=== PATIENT | female | born 1940 | race Native Hawaiian/Other Pacific Islander ===

== ENCOUNTER 2021-12-08 09:46 | Inpatient (IN) ==
[2021-12-08 13:42] LABS: Basophils # 0.1 K/mcL (0.0-0.2); Eosinophils # 0.3 K/mcL (0.0-0.6); Eosinophils % 4.2 %; Hematocrit 44.4 % (35.3-44.9); Hemoglobin 14.3 g/dL (11.5-15.4); Immature Granulocytes % 0.4 % (0-4); Lymphocytes # 1.6 K/mcL (0.6-4.6); Lymphocytes % 23.9 %; Mean Corpuscular HGB Conc 32.2 g/dL (31.6-35.5); Mean Corpuscular Hemoglobin 30.2 pg (28.0-33.3); Mean Corpuscular Volume 93.9 fL (83.0-100.0); Mean Platelet Volume 10.2 fL (9.4-12.4); Monocytes # 0.4 K/mcL (0.0-1.3); Monocytes % 6.6 %; Neutrophils # 4.3 K/mcL (1.6-8.9); Platelet Count 236 K/mcL (140-400); Red Blood Count 4.73 M/mcL (3.82-4.97); Red Cell Distribution Width 15.1 % (11.5-14.5); Segmented Neutrophils % 63.9 %; White Blood Count 6.7 K/mcL (4.3-11.1)
[2021-12-08 14:01] LABS: BUN/Creatinine Ratio 13 (6-26); Blood Urea Nitrogen 7 mg/dL (8-23); Carbon Dioxide 28 mEq/L (23-29); Chloride 101 mEq/L (98-107); Glucose 140 mg/dL (70-105); Osmolality,Calculated 284 (280-300); Sodium 137 mEq/L (136-145)
[2021-12-08] MEDS ORDERED: Ondansetron ODT 4 MG TAB.RAPDIS SL PRN (14:01)
[2021-12-08] MEDS ORDERED: Melatonin 3 MG TABLET PO PRN (14:01)
[2021-12-08] MEDS ORDERED: Naloxone 0.4 MG/ML INJ IVP PRN (14:01)
[2021-12-08] MEDS ORDERED: Gadolinium Contrast Agent (WT Based) IV PRN ×2 (14:32→15:04)
[2021-12-08] MEDS ORDERED: GADOBUTROL 30 MMOL/30 ML VIAL IVP ONE (15:20)
[2021-12-08] MEDS ORDERED: *HR* Dextrose 50 % in Water (Syg) 50 ML SYRINGE IVP PRN (15:49)
[2021-12-08] MEDS ORDERED: D5% in Water 1,000 ML IVC PRN (15:49)
[2021-12-08] MEDS ORDERED: Dextrose Gel 15 GM/37.5 ML TUBE PO PRN ×2 (15:49)
[2021-12-08] MEDS: Insulin LISPRO 300 UNITS/3 ML VIAL SUBQ SCH (18:25)
[2021-12-08] MEDS: levETIRAcetam 250 MG TABLET PO SCH (18:28)
[2021-12-09 03:09] LABS: Basophils # 0.1 K/mcL (0.0-0.2); Basophils % 0.9 %; Eosinophils # 0.4 K/mcL (0.0-0.6); Hematocrit 41.2 % (35.3-44.9); Hemoglobin 13.2 g/dL (11.5-15.4); Immature Granulocytes % 0.1 % (0-4); Lymphocytes # 1.5 K/mcL (0.6-4.6); Mean Corpuscular Hemoglobin 30.1 pg (28.0-33.3); Mean Corpuscular Volume 93.8 fL (83.0-100.0); Mean Platelet Volume 10.2 fL (9.4-12.4); Monocytes # 0.6 K/mcL (0.0-1.3); Monocytes % 9.1 %; Neutrophils # 4.4 K/mcL (1.6-8.9); Platelet Count 225 K/mcL (140-400); Red Blood Count 4.39 M/mcL (3.82-4.97); Red Cell Distribution Width 14.9 % (11.5-14.5); Segmented Neutrophils % 62.9 %
[2021-12-09 03:27] LABS: BUN/Creatinine Ratio 16 (6-26); Blood Urea Nitrogen 10 mg/dL (8-23); Calcium 9.3 mg/dL (8.6-10.3); Carbon Dioxide 30 mEq/L (23-29); Chloride 103 mEq/L (98-107); Glucose 136 mg/dL (70-105); Magnesium 1.8 mg/dL (1.6-2.6); Osmolality,Calculated 291 (280-300); Phosphorous 3.8 mg/dL (2.7-4.5); Potassium 4.2 mEq/L (3.5-5.1); Sodium 140 mEq/L (136-145)
[2021-12-09 03:55] LABS: Estimated Average Glucose 166 mg/dl; Hemoglobin A1C 7.4 %
[2021-12-09] MEDS: levETIRAcetam 250 MG TABLET PO SCH ×2 (06:10→18:43)
[2021-12-09] MEDS: Nicotine 14 MG PATCH.TD24 TD SCH (09:03)
[2021-12-09] MEDS: Insulin LISPRO 300 UNITS/3 ML VIAL SUBQ SCH ×3 (09:03→17:10)
[2021-12-09] MEDS ORDERED: Iopamidol - 370 500 ML MLS IVP ONE (12:47)
[2021-12-10 03:00] LABS: Basophils % 0.4 %; Eosinophils % 0.2 %; Hematocrit 40.7 % (35.3-44.9); Immature Granulocytes % 0.4 % (0-4); Lymphocytes # 0.8 K/mcL (0.6-4.6); Lymphocytes % 13.8 %; Mean Corpuscular HGB Conc 31.9 g/dL (31.6-35.5); Mean Corpuscular Hemoglobin 29.7 pg (28.0-33.3); Mean Corpuscular Volume 93.1 fL (83.0-100.0); Mean Platelet Volume 10.9 fL (9.4-12.4); Monocytes # 0.1 K/mcL (0.0-1.3); Monocytes % 1.6 %; Neutrophils # 4.7 K/mcL (1.6-8.9); Platelet Count 217 K/mcL (140-400); Red Blood Count 4.37 M/mcL (3.82-4.97); Red Cell Distribution Width 14.8 % (11.5-14.5); Segmented Neutrophils % 83.6 %; White Blood Count 5.7 K/mcL (4.3-11.1)
[2021-12-10 03:23] LABS: BUN/Creatinine Ratio 20 (6-26); Blood Urea Nitrogen 12 mg/dL (8-23); Carbon Dioxide 24 mEq/L (23-29); Chloride 101 mEq/L (98-107); Glucose 198 mg/dL (70-105); Osmolality,Calculated 289 (280-300); Potassium 4.3 mEq/L (3.5-5.1); Sodium 137 mEq/L (136-145)
[2021-12-10] MEDS: levETIRAcetam 250 MG TABLET PO SCH ×2 (05:59→17:28)
[2021-12-10] MEDS: Insulin LISPRO 300 UNITS/3 ML VIAL SUBQ SCH ×3 (08:58→17:30)
[2021-12-10] MEDS: Nicotine 14 MG PATCH.TD24 TD SCH (08:58)
[2021-12-10] MEDS ORDERED: Aspirin Enteric Coated 81 MG Tablet PO SCH ×2 (09:00→21:00)
[2021-12-10] MEDS: Cyanocobalamin (B-12) 1,000 MCG TABLET PO SCH (09:58)
[2021-12-10] MEDS: Cholecalciferol (D-3) 1,000 UNIT (25MCG) TABLET PO SCH (09:59)
[2021-12-11 07:15] LABS: Basophils % 0.2 %; Hematocrit 43.6 % (35.3-44.9); Hemoglobin 14.1 g/dL (11.5-15.4); Immature Granulocytes % 0.5 % (0-4); Lymphocytes # 1.2 K/mcL (0.6-4.6); Lymphocytes % 12.4 %; Mean Corpuscular HGB Conc 32.3 g/dL (31.6-35.5); Mean Corpuscular Hemoglobin 30.5 pg (28.0-33.3); Mean Corpuscular Volume 94.4 fL (83.0-100.0); Mean Platelet Volume 10.6 fL (9.4-12.4); Monocytes # 0.6 K/mcL (0.0-1.3); Monocytes % 5.7 %; Neutrophils # 7.9 K/mcL (1.6-8.9); Platelet Count 255 K/mcL (140-400); Red Blood Count 4.62 M/mcL (3.82-4.97); Segmented Neutrophils % 81.2 %
[2021-12-11] MEDS: levETIRAcetam 250 MG TABLET PO SCH ×2 (07:16→17:27)
[2021-12-11 07:17] LABS: Calcium 9.3 mg/dL (8.6-10.3); Potassium 4.1 mEq/L (3.5-5.1)
[2021-12-11] MEDS: Nicotine 14 MG PATCH.TD24 TD SCH (07:43)
[2021-12-11] MEDS: Insulin LISPRO 300 UNITS/3 ML VIAL SUBQ SCH ×3 (07:44→17:27)
[2021-12-11 08:27] LABS: White Blood Count 9.7 K/mcL (4.3-11.1)
[2021-12-11] MEDS ORDERED: dexAMETHasone 4 MG TABLET PO SCH (09:00)
[2021-12-11] MEDS: Cholecalciferol (D-3) 1,000 UNIT (25MCG) TABLET PO SCH (09:37)
[2021-12-11] MEDS: Cyanocobalamin (B-12) 1,000 MCG TABLET PO SCH (09:37)
[2021-12-11] MEDS ORDERED: Ringers Solution, Lactated 1,000 ML IVC SCH (11:30)
[2021-12-11] MEDS ORDERED: Lidocaine HCL 4 ML Topical Solution (Laryng-O-Jet Kit Sterile Pak) TP ONE (12:04)
[2021-12-11] MEDS ORDERED: *HR* Propofol 200 MG/20 ML VIAL IVP ONE (12:04)
[2021-12-11] MEDS ORDERED: *HR* Succinylcholine 200 MG/10 ML VIAL IVP ONE (12:05)
[2021-12-11] MEDS ORDERED: Lidocaine -MPF 2% 5 ML VIAL ONE (12:06)
[2021-12-11] MEDS ORDERED: Ondansetron 4 MG/2 ML VIAL ONE (12:06)
[2021-12-11] MEDS ORDERED: *HR* Rocuronium Bromide 50 MG/5 ML VIAL ONE (12:06)
[2021-12-11] MEDS ORDERED: *HR* FentaNYL (PF) 100 MCG/2 ML VIAL ONE (12:07)
[2021-12-11] MEDS ORDERED: Ipratropium/Albuterol Neb 3 ML IH ONE (13:27)
[2021-12-11 17:45] VITALS: BP 152/63; PULSE 90; TEMP 97.3; O2SAT 93
== END 2021-12-11 20:05 | disposition home or self-care (01) | DRG 70 ==
LOC: 3NENU 09:46 → EMEROOARM 09:46 → 3NENU 16:15
PROVIDERS: ADMIT Internal Medicine; ATTEND Internal Medicine